=== PATIENT | female | born 1985 | race African-American/Black ===

== ENCOUNTER 2018-07-08 14:50 | Observation (INO) | payer SELFPAY ==
[2018-07-08 15:16] LABS: #Basophils 0.1 thou/uL (0.0-0.2); #Eosinphils 0.1 thou/uL (0.0-0.7); #Lymphocytes 1.8 thou/uL (1.20-3.40); #Monocytes 0.4 thou/uL (0.11-0.59); #Neutrophils 3.8 thou/uL (1.40-6.50); %Basophils 1.1 % (0.0-1.0); %Eosinophils 1.3 % (0.0-10.0); %Lymphocytes 28.8 % (21.0-51.0); %Monocytes 6.3 % (0.0-10.0); %Neutrophils 62.4 % (42.0-75.0); Mean Corpuscular HGB CONC 33.5 g/dL (32.0-36.0); Mean Corpuscular Hemoglobin 30.9 pg (27.0-31.0); Mean Corpuscular Volume 92.2 fL (78.0-98.0); Mean Platelet Volume 7.3 fL (7.4-10.4); Platelet Count 302 thou/uL (130-400); RBC Distribution Width 11.4 % (11.5-14.5); Red Blood Cell (RBC) Count 3.56 mill/uL (4.20-5.40); White Blood Cell (WBC) Count 6.2 thou/uL (4.8-10.8)
[2018-07-08 15:23] LABS: BHCG - Serum Negative (NEGATIVE); Pregs Control Background? CLEAR/WHITE (CLR/WHITE); Pregs Control Bar Appear? YES (CONTROL BAR)
[2018-07-08] MEDS ORDERED: Ketorolac Tromethamine 30 MG/ML VIAL ONE (15:35)
[2018-07-08] MEDS ORDERED: Nitroglycerin 2% Ointment 1 INCH/1 GM Packet ONE (15:35)
[2018-07-08 15:36] LABS: ALT (SGPT) 12 U/L (8-55); AST (SGOT) 15 U/L (5-34); Albumin 3.9 g/dL (3.5-5.0); Alkaline Phosphatase 42 U/L (40-150); Anion Gap 11 mmol/L (10-20); BUN (Urea Nitrogen) 12 mg/dL (7.0-18.7); Bilirubin, Total 0.2 mg/dL (0.2-1.2); Calc. Creatinine Clearance 0 mL/min (70-130); Calcium 9.1 mg/dL (7.8-10.44); Carbon Dioxide 23 mmol/L (22-29); Chloride 105 mmol/L (98-107); Estimated GFR-MDRD Greater than 90; Globulin 3.5 g/dL (2.4-3.5); Glucose 98 mg/dL (70-105); Potassium 3.9 mmol/L (3.5-5.1); Protein, Total 7.4 g/dL (6.0-8.3); Sodium 135 mmol/L (136-145)
--- NOTE | 2018-07-08 15:54 | RAD ---
XR Chest 1 View Portable HISTORY: Chest pain COMPARISON: 06/08/2012 FINDINGS: The heart size is normal. The lungs are well expanded without focal areas of consolidation, pneumothorax or pleural effusions. IMPRESSION: No radiographic evidence of acute cardiopulmonary process.
[2018-07-08 18:31] LABS: Troponin I Less than 0.010 ng/mL (< 0.028)
[2018-07-08] MEDS ORDERED: Acetaminophen 500 MG TAB ONE (18:43)
[2018-07-08] MEDS ORDERED: Guaifenesin DM 100-10/5 ML UDCUP PO PRN (19:36)
[2018-07-08] MEDS ORDERED: Acetaminophen 325 MG TAB PO PRN (19:36)
[2018-07-08] MEDS ORDERED: Ondansetron ODT 4 MG TAB PO PRN (19:36)
[2018-07-08] MEDS ORDERED: Senokot S 8.6-50 MG TAB PO PRN (19:36)
[2018-07-08] MEDS ORDERED: Acetaminophen 650 MG Suppository PR PRN (19:36)
[2018-07-08] MEDS ORDERED: Ondansetron PF 4 MG/2 ML Vial IVP PRN (19:36)
[2018-07-08] MEDS: Famotidine 20 MG TAB PO SCH (19:56)
[2018-07-08 22:45] LABS: Troponin I Less than 0.010 ng/mL (< 0.028)
--- NOTE | 2018-07-09 00:54 | HP ---
PRIMARY CARE PHYSICIAN: [facility] in [place]. CHIEF COMPLAINT: Chest pain. HISTORY OF PRESENT ILLNESS: This is a 32-year-old female with a history of cardiomyopathy in 2016 after her last done by section complicated by hemorrhage and blood transfusion. She reports she has had a little bit of lower extremity edema on and off over the years. She takes hydrochlorothiazide daily for this from the [facility], used to have some high blood pressure too. However, it dropped low and so she is no longer on any other blood pressure medications. The patient reports she has been under a lot of stress recently both financial and with conflicts in the family. She started having a little bit of sharp chest pains on and off in center of the chest starting about 1 to 2 days ago. This was just intermittent. 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 She started getting persistent sharp chest pains in middle of her chest, worsened with her activities of lifting, pulling, and moving things. This pain did not radiate, was associated with some weakness all over with some mild shortness of breath both with activity and at rest, so she eventually called an ambulance and was brought into the hospital. In the ambulance, she was given aspirin and two sprays of nitroglycerin. At this point, the chest pain changed to a dull pressure and improved some. In the emergency room, the patient was found to have normal blood pressure. No tachycardia. The pain was rated 8/10 and then 10/10 in the ambulance, and she does report some moderate pressure, dull pressure pain during my interview right now without any other symptoms. In the ER, she was also given Toradol, Nitro-Bid, and a liter of lactated Ringer's. PAST MEDICAL HISTORY: 1. cardiomyopathy. 2. Hypertension, normotensive. 3. Chronic fluid retention. PAST SURGICAL HISTORY: 1. . 2. Bilateral tubal ligation. 3. Cystectomy. SOCIAL HISTORY: No tobacco. Very rare alcohol use. No illicit drug use. FAMILY HISTORY: Dad has congestive heart failure and diabetes. Mother with hypertension and some sort of blood cancer and brother has an enlarged heart. ALLERGIES: NO KNOWN DRUG ALLERGIES. CURRENT MEDICATIONS: Hydrochlorothiazide 12.5 mg daily. REVIEW OF SYSTEMS: CONSTITUTIONAL: No fevers. No chills. EYES: The patient reports some blurred vision, double vision with this episode today, now normal. ENT: No congestion, drainage, or sore throat. CARDIOVASCULAR: See HPI. PULMONARY: No coughing, wheezing, or shortness of breath. Currently, she did have the dyspnea earlier as per HPI. GASTROINTESTINAL: No abdominal pain. No nausea or vomiting. No diarrhea or constipation. GENITOURINARY: No dysuria or hematuria. MUSCULOSKELETAL: She does get some bilateral knee pain when her legs get swollen, but nothing specifically worse that right now. No other musculoskeletal complaints. SKIN: No rashes or lesions noted. NEUROLOGIC: She has some generalized weakness but no numbness, tingling, or focal weakness. PHYSICAL EXAMINATION: VITAL SIGNS: Blood pressure 139/83, pulse 66, respirations 16, temperature 98.7, and O2 saturation 97% on room air. GENERAL: This is a well-developed, obese female, in no acute distress. She does not appear to be in any current discomfort. HEENT: Pupils are equal, round, and reactive to light. Oropharynx clear without lesions, erythema, or exudate. HEART: Regular rate and rhythm. No murmurs, rubs, or gallops. LUNGS: Clear to auscultation bilaterally. No wheezes, crackles, or rhonchi. She does have tenderness to palpation of the sternal area which reproduces the pain. ABDOMEN: Soft, nontender to palpation. Normoactive bowel sounds. No hepatosplenomegaly or other masses. EXTREMITIES: No clubbing or cyanosis. She does have trace edema to bilateral shins. SKIN: No rashes or lesions noted. NEUROLOGIC: Intact strength and sensation in all extremities. No facial droop. LABORATORY DATA: CBC with a hemoglobin of 11.0 and hematocrit 32.8, and the rest was normal. D-dimer was negative. Complete metabolic panel is notable for a sodium of 135. The rest was completely normal. Brain natriuretic peptide was normal at 37 and troponin was negative x1. EKG done in the emergency room shows some mild sinus arrhythmia, but no tachycardia. Did have some inverted T-waves and partially inverted T-wave in V1 and V2. No ST-segment changes. No evidence of right heart strain. IMAGING STUDIES: Chest x-ray, I did review the chest x-ray done in the emergency room along with the radiologist's report. It does show normal heart size. No effusion changes. No evidence of congestive failure. No evidence of infiltrates. ASSESSMENT: 1. Chest pain, atypical. The patient has negative troponins thus far, negative EKG, and has atypical chest pain that is reproducible to palpation of the chest wall. This is most likely musculoskeletal and possibly related to her stress. The patient does have a history of cardiomyopathy, though it normal. She has normal BNP. We will go ahead and get an echocardiogram on her just to make sure she is having normal cardiac function, and we will trend her troponins overnight. If her troponins are negative tomorrow, then she can likely be discharged with any inflammatories. 2. History of cardiomyopathy, checking an echocardiogram. She does not appear fluid overloaded at this time. Her BNP is normal. I do not think she needs to increase her diuretics. The trace edema in her lower extremities is likely venous insufficiency and will probably not respond to more aggressive diuresis. 3. Obesity. 4. Gastrointestinal prophylaxis. The patient is on Pepcid twice a day. 5. Deep venous thrombosis prophylaxis. We will put patient on SCDs while in bed and encourage ambulation. CODE STATUS: The patient is a full code. Should she be incapacitated, her mother would be her medical decision maker, her name is Zachary Phan. Job ID: [id number]
[2018-07-09] MEDS ORDERED: Ketorolac Tromethamine 30 MG/ML VIAL IVP SCH (04:00)
[2018-07-09 04:36] LABS: #Basophils 0.1 thou/uL (0.0-0.2); #Eosinphils 0.1 thou/uL (0.0-0.7); #Lymphocytes 2.5 thou/uL (1.20-3.40); #Monocytes 0.3 thou/uL (0.11-0.59); #Neutrophils 3.4 thou/uL (1.40-6.50); %Basophils 1.3 % (0.0-1.0); %Eosinophils 1.9 % (0.0-10.0); %Lymphocytes 39.2 % (21.0-51.0); %Monocytes 5.3 % (0.0-10.0); %Neutrophils 52.3 % (42.0-75.0); Hemoglobin 10.4 g/dL (12.0-16.0); Mean Corpuscular HGB CONC 33.5 g/dL (32.0-36.0); Mean Corpuscular Hemoglobin 31.1 pg (27.0-31.0); Mean Corpuscular Volume 92.7 fL (78.0-98.0); Mean Platelet Volume 7.3 fL (7.4-10.4); Platelet Count 267 thou/uL (130-400); RBC Distribution Width 11.5 % (11.5-14.5); Red Blood Cell (RBC) Count 3.34 mill/uL (4.20-5.40); White Blood Cell (WBC) Count 6.4 thou/uL (4.8-10.8)
[2018-07-09 04:48] LABS: Anion Gap 10 mmol/L (10-20); BUN (Urea Nitrogen) 10 mg/dL (7.0-18.7); Calc. Creatinine Clearance 147 mL/min (70-130); Calcium 8.6 mg/dL (7.8-10.44); Carbon Dioxide 25 mmol/L (22-29); Chloride 107 mmol/L (98-107); Estimated GFR-MDRD Greater than 90; Glucose 96 mg/dL (70-105); Potassium 3.6 mmol/L (3.5-5.1); Sodium 138 mmol/L (136-145)
[2018-07-09 06:20] VITALS: BMI 32.9
[2018-07-09] MEDS ORDERED: Hydrochlorothiazide 25 MG TAB PO SCH (09:00)
[2018-07-09] MEDS: Famotidine 20 MG TAB PO SCH (11:13)
--- NOTE | 2018-07-09 11:38 | PDOC.PN ---
- Subjective Encounter Start Date: 07/09/18 Encounter Start Time: 11:37 Ms. Phan was seen today in follow-up of chest pain. She says she has chest pain today which is now a constant pressure. She does not have any dyspnea. - Objective Resuscitation Status - Order Detail: 07/08/18 18:04 Resuscitation Status Routine Resuscitation Status: FULL: Full Resuscitation Discussed with: Patient MAR Reviewed: Yes Vital Signs & Weight: Vital Signs (12 hours) Temp Pulse Resp BP BP Pulse Ox 07/09/18 08:00 97.8 F 76 18 112/74 100 07/09/18 03:15 97.9 F 67 16 111/59 L 99 07/08/18 23:48 97.9 F 70 16 93/59 L 99 Weight Weight 191 lb 15.999 oz I&O: 07/08/18 07/09/18 07/10/18 06:59 06:59 06:59 Intake Total 520 Output Total 1200 Balance -680 Result Diagrams: 07/09/18 04:28 07/09/18 04:27 Phys Exam - Physical Examination HEENT: PERRLA Respiratory: no wheezing, no rales, no rhonchi, clear to auscultation bilateral Cardiovascular: RRR, no significant murmur, no rub Gastrointestinal: soft, non-tender, no distention, positive bowel sounds Musculoskeletal: no edema, pulses present + reproducible tenderness in the mid to left upper chest Neurological: non-focal Dx/Plan (1) Chest pain Code(s): R07.9 - CHEST PAIN, UNSPECIFIED Status: Acute (2) cardiomyopathy Code(s): O90.3 - PERIPARTUM CARDIOMYOPATHY Status: Acute (3) Obesity (BMI 30.0-34.9) Code(s): E66.9 - OBESITY, UNSPECIFIED Status: Chronic - Plan * Chest pain- it sounds musculoskeletal in origin- however given her history of cardiomyopathy will await Echo results * HTN- she has a history of hypertension, she is normotensive now * Hopefully home this evening.
[2018-07-09 12:07] VITALS: BP 112/68; TEMP 97.6
--- NOTE | 2018-07-10 03:17 | DIS ---
DATE OF ADMISSION: 07/08/2018 DATE OF DISCHARGE: 07/09/2018 The patient currently does not have a primary care physician. DISCHARGE DISPOSITION: Home. DISCHARGE DIAGNOSES: 1. Chest pain, probable musculoskeletal strain. 2. Hypertension. 3. History of previous cardiomyopathy. 4. Depression and anxiety. DISCHARGE MEDICATIONS: Include: 1. Hydrochlorothiazide 12.5 mg p.o. daily. 2. BuSpar 10 mg twice daily. PROCEDURES DONE DURING THE ADMISSION: The patient had an echocardiogram in which the ejection fraction was estimated at 50% to 55%. There was probable 1/3 diastolic dysfunction. There was normal right ventricular function and size. The left ventricle, there was evidence of some diastolic dysfunction. CODE STATUS: Full code. ALLERGIES: NO KNOWN DRUG ALLERGIES. HOSPITAL COURSE: Ms. Phan is a pleasant 32-year-old female, who presented to the emergency room complaining of chest pain. It was sharp and atypical in character and likely due to musculoskeletal strain. However, given her history of previous cardiomyopathy, she was placed in observation and ruled out. An echocardiogram was obtained, which did not show any significant abnormalities other than some mild diastolic dysfunction. Her troponins were all negative and her chest pain was reproducible on exam. It is therefore felt that the pain is likely as a result of a musculoskeletal strain due to job-related circumstances and should be self-limiting. Therefore, she is stable and able to be discharged home. She also has been having quite a bit of stress at home and has suffered some symptoms of depression and anxiety. She denies any suicidal or homicidal ideation; however, and for this reason, we will be placing her on BuSpar. Job ID: [id number]
== END 2018-07-09 16:45 | disposition home or self-care (01) ==
LOC: ERS 14:50 → 2SW 19:16
PROVIDERS: ADMIT Emergency Medicine; ATTEND Emergency Medicine
DX: R07.89 Other chest pain (principal); R06.02 Shortness of breath; I10 Essential (primary) hypertension; F41.8 Other specified anxiety disorders; F32.9 Major depressive disorder, single episode, unspecified; R60.9 Edema, unspecified; Z79.899 Other long term (current) drug therapy; E66.9 Obesity, unspecified; Z68.33 Body mass index [BMI] 33.0-33.9, adult
CPT/HCPCS: 36415; 71045; 80048; 80053; 83880; 84443; 84484; 84703; 85025; 85379; 93005; 93010; 93306; 96361; 96374; 96376; G0378; J1885

== ENCOUNTER 2018-10-09 10:49 | Emergency (ER) | payer SELFPAY ==
[2018-10-09 11:24] LABS: #Eosinphils 0.1 thou/uL (0.0-0.7); #Lymphocytes 1.7 thou/uL (1.20-3.40); #Monocytes 0.3 thou/uL (0.11-0.59); #Neutrophils 2.7 thou/uL (1.40-6.50); %Basophils 0.9 % (0.0-1.0); %Eosinophils 1.8 % (0.0-10.0); %Lymphocytes 35.5 % (21.0-51.0); %Monocytes 6.9 % (0.0-10.0); %Neutrophils 54.9 % (42.0-75.0); Hemoglobin 12.6 g/dL (12.0-16.0); Mean Corpuscular HGB CONC 34.2 g/dL (32.0-36.0); Mean Corpuscular Hemoglobin 30.8 pg (27.0-31.0); Mean Corpuscular Volume 90.3 fL (78.0-98.0); Platelet Count 287 thou/uL (130-400); RBC Distribution Width 11.4 % (11.5-14.5); White Blood Cell (WBC) Count 4.9 thou/uL (4.8-10.8)
[2018-10-09 11:51] LABS: BHCG - Serum Negative (NEGATIVE); Pregs Control Background? CLEAR/WHITE (CLR/WHITE); Pregs Control Bar Appear? YES (CONTROL BAR)
[2018-10-09 12:03] LABS: Bacteria/HPF None Seen HPF (None Seen); Bilirubin Negative (Negative); Blood, Urine 2+ (Negative); Clarity Clear (Clear); Glucose, Urine (Dipstick) Normal (Negative); Leukocyte Negative Leu/uL (Negative); Nitrite Negative (Negative); Protein, Urine (Dipstick) Negative (Neg-Trace); RBC/HPF Greater than 50 HPF (0-3); Squamous Epithelial 0-3 HPF (0-3); Urobilinogen Normal mg/dL (Less than 2); WBC/HPF 0-3 HPF (0-3)
[2018-10-09] MEDS ORDERED: Ketorolac Tromethamine 60 MG/2 ML VIAL ONE (12:19)
--- NOTE | 2018-10-09 13:24 | ULT ---
Transabdominal pelvic ultrasound INDICATION: Vaginal bleeding TECHNIQUE: Grayscale, color Doppler imagesand spectral doppler images were obtained of the pelvis via transabdominal approach only. FINDINGS: Uterus: 10.4 x 4.4 x 5.1 cm. There is scarring involving the lower anterior uterine body likely rel ated to prior scar. Right adnexa: 2.0 x 2.0 x 1.9 cm cm. Right ovary is normal appearing with normal flow. Left adnexa: 2.4 x 1.7 x 2 cm. The left ovary is normal appearing with normal flow. Free fluid: None present. Additional findings: None. IMPRESSION: 1. Normal exam.
== END 2018-10-09 14:05 | disposition home or self-care (01) ==
LOC: ERS 10:49
DX: N93.9 Abnormal uterine and vaginal bleeding, unspecified (principal); R10.9 Unspecified abdominal pain; I10 Essential (primary) hypertension; Z79.899 Other long term (current) drug therapy
CPT/HCPCS: 36415; 76856; 81003; 81015; 84703; 85025; 93976; 94760; 96372; J1885

== ENCOUNTER 2019-03-13 13:34 | Emergency (ER) | payer SELFPAY ==
[2019-03-13] MEDS ORDERED: Acetaminophen 500 MG TAB ONE (14:23)
[2019-03-13] MEDS ORDERED: Ondansetron ODT 4 MG TAB ONE (14:23)
[2019-03-13] MEDS ORDERED: Ibuprofen 800 MG TAB ONE (14:23)
== END 2019-03-13 15:11 | disposition home or self-care (01) ==
LOC: ERS 13:34
DX: B34.9 Viral infection, unspecified (principal); I10 Essential (primary) hypertension; F41.9 Anxiety disorder, unspecified; Z79.899 Other long term (current) drug therapy
CPT/HCPCS: 87081; 87430; 87804; 99283; Q0162

== ENCOUNTER 2019-04-27 01:18 | Emergency (ER) | payer SELFPAY ==
[2019-04-27] MEDS ORDERED: Ibuprofen 200 MG TAB ONE (03:06)
[2019-04-27] MEDS ORDERED: Bacitracin 1 PK ONE (03:06)
--- NOTE | 2019-04-27 07:24 | RAD ---
Exam:4 views left knee HISTORY: Pain. Injury. COMPARISON: None FINDINGS: No joint effusion. No fracture. No malalignment. Preserved joint spaces. IMPRESSION: No fracture.
== END 2019-04-27 05:16 | disposition home or self-care (01) ==
LOC: ERS 01:18
DX: S80.02XA Contusion of left knee, initial encounter (principal); I10 Essential (primary) hypertension; F41.9 Anxiety disorder, unspecified; W22.8XXA Striking against or struck by other objects, initial encounter

== ENCOUNTER 2019-07-24 15:18 | Emergency (ER) | payer OTHER, SELFPAY ==
[2019-07-25 12:24] LABS: SARS-CoV-2 MS2 Positive; SARS-CoV-2 N Gene Negative; SARS-CoV-2 S Gene Negative; SARS-CoV-2 orf1ab Negative
== END 2019-07-24 15:55 | disposition home or self-care (01) ==
LOC: ERS 15:18
DX: Z20.828 Contact with and (suspected) exposure to other viral communicable diseases (principal); I10 Essential (primary) hypertension
CPT/HCPCS: 87635; 99283; U0003

== ENCOUNTER 2019-09-07 11:20 | Emergency (ER) | payer OTHER ==
[2019-09-08 11:42] LABS: SARS-CoV-2 MS2 Positive; SARS-CoV-2 N Gene Positive; SARS-CoV-2 S Gene Positive; SARS-CoV-2 by NAA DETECTED (NotDetected); SARS-CoV-2 orf1ab Positive
== END 2019-09-07 11:43 | disposition home or self-care (01) ==
LOC: ERS 11:20
DX: U07.1 COVID-19 (principal); R07.9 Chest pain, unspecified; I10 Essential (primary) hypertension
CPT/HCPCS: 87635; 99284; U0003

== ENCOUNTER 2019-10-10 17:42 | Emergency (ER) | payer OTHER, SELFPAY ==
[2019-10-10] MEDS ORDERED: Acetaminophen 500 MG TAB ONE ×2 (18:12→18:29)
[2019-10-10] MEDS ORDERED: Ibuprofen 800 MG TAB ONE ×2 (18:12→18:29)
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
== END 2019-10-10 19:18 | disposition home or self-care (01) ==
LOC: ERS 17:42
DX: R51 Headache (principal); F41.9 Anxiety disorder, unspecified; I10 Essential (primary) hypertension; Z79.899 Other long term (current) drug therapy; V89.2XXA Person injured in unspecified motor-vehicle accident, traffic, initial encounter
CPT/HCPCS: 70450

== ENCOUNTER 2021-11-15 08:57 | Emergency (ER) | payer SELFPAY ==
[2021-11-15 09:46] LABS: Bilirubin Negative (Negative); Blood, Urine Negative (Negative); Clarity Clear (Clear); Glucose, Urine (Dipstick) Normal (Negative); Ketone, Urine Negative (Negative); Leukocyte Negative Leu/uL (Negative); Nitrite Negative (Negative); Protein, Urine (Dipstick) Negative (Neg-Trace); Specific Gravity, Urine 1.004 (1.002-1.036); Urobilinogen Normal mg/dL (Less than 2); pH, Urine 5.5 (5.0-9.0)
[2021-11-15 10:04] LABS: #Basophils 0.1 thou/uL (0.0-0.2); #Eosinphils 0.1 thou/uL (0.0-0.7); #Lymphocytes 1.7 thou/uL (1.20-3.40); #Monocytes 0.4 thou/uL (0.11-0.59); #Neutrophils 2.9 thou/uL (1.40-6.50); %Eosinophils 2.2 % (0.0-10.0); %Lymphocytes 33.5 % (21.0-51.0); %Monocytes 7.1 % (0.0-10.0); %Neutrophils 56.1 % (42.0-75.0); Hemoglobin 12.1 g/dL (12.0-16.0); Mean Corpuscular HGB CONC 32.6 g/dL (32.0-36.0); Platelet Count 285 thou/uL (130-400); RBC Distribution Width 11.2 % (11.5-14.5); Red Blood Cell (RBC) Count 4.03 mill/uL (4.20-5.40); White Blood Cell (WBC) Count 5.1 thou/uL (4.8-10.8)
[2021-11-15 10:05] LABS: BHCG - Serum Negative (NEGATIVE); Pregs Control Background? CLEAR/WHITE (CLR/WHITE); Pregs Control Bar Appear? YES (CONTROL BAR)
[2021-11-15] MEDS ORDERED: diphenhydrAMINE 50 MG/ML VIAL ONE (10:13)
[2021-11-15] MEDS ORDERED: Metoclopramide HCl 10 MG/2 ML VIAL ONE (10:13)
[2021-11-15] MEDS ORDERED: Ketorolac Tromethamine 30 MG/ML VIAL ONE (10:13)
[2021-11-15 10:18] LABS: ALT (SGPT) 10 U/L (8-55); AST (SGOT) 16 U/L (5-34); Albumin 4.2 g/dL (3.5-5.0); Alkaline Phosphatase 46 U/L (40-110); Anion Gap 11 mmol/L (10-20); BUN (Urea Nitrogen) 10 mg/dL (7.0-18.7); Bilirubin, Total 0.5 mg/dL (0.2-1.2); Calc. Creatinine Clearance 0 mL/min (70-130); Calcium 9.4 mg/dL (7.8-10.44); Carbon Dioxide 27 mmol/L (22-29); Chloride 102 mmol/L (98-107); Estimated GFR 86; Globulin 3.8 g/dL (2.4-3.5); Glucose 103 mg/dL (70-105); Potassium 3.7 mmol/L (3.5-5.1); Sodium 136 mmol/L (136-145)
== END 2021-11-15 12:09 | disposition home or self-care (01) ==
LOC: ERS 08:57
DX: R51.9 Headache, unspecified (principal); I10 Essential (primary) hypertension
CPT/HCPCS: 36415; 70450; 71045; 80053; 81003; 84703; 85025; 93005; 96365; 96366; 96375; J1200; J1885; J2765

== ENCOUNTER 2022-09-03 18:42 | Emergency (ER) | payer SELFPAY ==
[2022-09-03] MEDS ORDERED: Ketorolac Tromethamine 30 MG/ML VIAL ONE (19:41)
[2022-09-03] MEDS ORDERED: Acetaminophen 500 MG TAB ONE (19:41)
== END 2022-09-03 21:26 | disposition home or self-care (01) ==
LOC: ERS 18:42
DX: M79.605 Pain in left leg (principal); I10 Essential (primary) hypertension
CPT/HCPCS: 96372; J1885

== ENCOUNTER 2023-01-18 12:01 | Emergency (ER) | payer BC, OTHER ==
[2023-01-18] MEDS ORDERED: Ketorolac Tromethamine 30 MG/ML VIAL ONE (12:50)
== END 2023-01-18 13:51 | disposition home or self-care (01) ==
LOC: ERS 12:01
DX: M54.50 Low back pain, unspecified (principal); I10 Essential (primary) hypertension; W20.8XXA Other cause of strike by thrown, projected or falling object, initial encounter
CPT/HCPCS: 72072; 72100; 96372; J1885

== ENCOUNTER 2024-03-10 11:30 | Emergency (ER) | payer OTHER ==
[2024-03-10] MEDS ORDERED: Ketorolac Tromethamine 30 MG (1 mL) VIAL ONE (12:48)
[2024-03-10 14:00] LABS: #Basophils Less than 0.03 10x3/uL (0.0-0.2); #Eosinophils Less than 0.03 10x3/uL (0.0-0.7); %Basophils 0.2 % (0.0-1.0); %Eosinophils 0.1 % (0.0-10.0); %Monocytes 6.1 % (0.0-10.0); %Neutrophils 67.2 % (42.0-75.0); Hematocrit 35.8 % (36.0-47.0); Hemoglobin 12.2 g/dL (12.0-16.0); Mean Corpuscular HGB CONC 34.1 g/dL (32.0-36.0); Mean Corpuscular Hemoglobin 29.8 pg (27.0-31.0); Mean Corpuscular Volume 87.5 fL (78.0-98.0); Mean Platelet Volume 9.8 fL (7.4-10.4); Platelet Count 329 10x3/uL (130-400); RBC Distribution Width 12.1 % (11.5-14.5); Red Blood Cell (RBC) Count 4.09 mill/uL (4.20-5.40)
[2024-03-10 14:09] LABS: BHCG - Serum Negative (NEGATIVE); Pregs Control Background? CLEAR/WHITE (CLR/WHITE); Pregs Control Bar Appear? YES (CONTROL BAR)
[2024-03-10 14:20] LABS: ALT (SGPT) 25 U/L (Less than 34); AST (SGOT) 24 U/L (11-34); Albumin 3.6 g/dL (3.1-4.5); Alkaline Phosphatase 46 U/L (40-110); Anion Gap 10 mmol/L (10-20); BUN (Urea Nitrogen) 11 mg/dL (7.0-18.7); Bilirubin, Total 0.3 mg/dL (0.3-1.2); Calc. Creatinine Clearance 0 mL/min (70-130); Calcium 8.9 mg/dL (7.8-10.44); Carbon Dioxide 28 mmol/L (22-29); Estimated GFR 90; Globulin 3.7 g/dL (2.4-3.5); Glucose 94 mg/dL (70-105); Potassium 3.6 mmol/L (3.5-5.1); Protein, Total 7.3 g/dL (6.0-8.3); Sodium 138 mmol/L (136-145)
[2024-03-10 14:22] LABS: Troponin I Less than 0.010 ng/mL (< 0.028)
[2024-03-10 14:29] LABS: Chloride 104 mmol/L (98-107)
== END 2024-03-10 15:07 | disposition home or self-care (01) ==
LOC: ERS 11:30
DX: R07.9 Chest pain, unspecified (principal); I10 Essential (primary) hypertension; Z79.82 Long term (current) use of aspirin; Z79.899 Other long term (current) drug therapy
CPT/HCPCS: 36415; 71046; 80053; 84484; 84703; 85025; 93005; 96372; J1885